=== PATIENT | female | born 1980 | race Caucasian/White ===

== ENCOUNTER 2017-05-01 12:52 | Emergency (ER) | payer BC ==
[2017-05-01] MEDS ORDERED: Sodium Chloride 0.9% 1,000 ML IV ONE (13:35)
[2017-05-01] MEDS ORDERED: Sodium Chloride 0.9% 50 ML SDV FLUSH SCH (13:45)
[2017-05-01] MEDS ORDERED: Iopamidol 755 Mg/ML 100 ML Bottle IV PRN (13:45)
[2017-05-01 13:55] VITALS: BP 121/84
[2017-05-01] MEDS ORDERED: NS + KCl 20mEq/L 1,000 ML ONE (14:40)
[2017-05-01] MEDS ORDERED: cefTRIAXone 1 GM in Sodium Chloride 0.9% 50 ML IV ONE (15:24)
[2017-05-01] MEDS ORDERED: cefTRIAXone 1 GM Vial ONE (15:29)
--- NOTE | 2017-05-01 18:53 | CT ---
DATE OF SERVICE: 05/01/2017 CLINICAL DATA: SOB after surgery. ENHANCED CHEST CT: Multislice acquisition through the chest with IV contrast was performed. No priors. Motion artifact significantly degrades image quality. I do not see any definite PE. No pneumothorax. There are small bilateral pleural effusions, right greater than left. No aortic aneurysm or dissection. There are atelectatic changes in the dependent portion of both lungs. There are small areas of consolidation in both costophrenic angles. Pneumonia should be considered. The heart size is normal. No pericardial effusion. No hilar or mediastinal adenopathy. There is a small hiatal hernia. No other significant findings. IMPRESSION: No evidence of PE. Small bilateral pleural effusions, right greater than left. Areas of consolidation in both costophrenic angles. Pneumonia should be considered. [id number] MTDD
--- NOTE | 2017-05-01 21:57 | ER ---
HISTORY OF PRESENT ILLNESS: A 37-year-old lady who comes in with complaints of shortness of breath and lightheadedness since this morning. She states that she had surgery on Tuesday for right hip. 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 She has been weak and a little bit lightheaded since surgery, but today things got worse. She denies any falls or new injuries. She does not think she has been running a fever. The patient does have history of lupus. She denies any significant cough, just tells me that there is mild shortness of breath. OBJECTIVE: GENERAL APPEARANCE: The patient is awake and alert. She is pale. VITAL SIGNS: Reviewed. Blood pressure 121/84. She is afebrile. Pulse is 75, O2 sats are 100% on room air. HEENT: Eyes, pupils equal, round, and reactive to light. EOMs are intact. Ears, TMs are dull. Oral mucous membranes are moist. Posterior pharynx shows no obvious inflammation. NECK: Supple. LUNGS: Clear to auscultation. CARDIAC: Heart sounds distinct. S1, S2 present. Regular rate. No murmurs. SKIN: Warm and dry. I evaluated the dressing over the incision on the right hip and the area around the border of the dressing reveals skin is intact without any redness. There is mild swelling of the entire right thigh. There is no tenderness with palpation of the thigh or of the lower leg. LAB AND X-RAYS: CBC shows a normal white count. Neutrophils are slightly elevated at 74.8. D-dimer is elevated at 985. Comprehensive metabolic panel shows a potassium level of 3.0. Kidney function is good. A chest CT was then done with contrast, the CT report is negative for PE, is questioning either atelectasis or pneumonia in the lower lobes. At this point, I consulted the ED Glenn BAUMANN who is Dr. Medina who reviewed the CT. The patient will be ambulated on crutches and if her O2 sats remained stable, was instructed that she would be a candidate that could go home with some antibiotics and a close followup in the clinic within the next day or two. The patient was given 1 L normal saline with 20 mEq of K-Dur. We also give her Rocephin 1 g IV. We did have the patient ambulate in the emergency room. Her oxygen saturation drops to 96% at the lowest on room air. DIAGNOSES: 1. Questionable pneumonia versus atelectasis postop. 2. Hypokalemia. TREATMENT PLAN: The patient is instructed that she can go home with a followup in the clinic over the next day or two, no later than Tuesday. Follow up sooner if her symptoms should get worse. CRS/MODL /[id number]
== END 2017-05-01 16:40 | disposition home or self-care (01) ==
LOC: LB.ED 12:52
DX: E87.6 Hypokalemia (principal)
CPT/HCPCS: 36415; 71260; 80053; 85025; 85379; 87804; 93005; 96361; 96365; 99285-25; J0696; J3480; J7030; J7050; Q9967

== ENCOUNTER 2017-10-04 20:06 | Emergency (ER) | payer BC ==
[2017-10-04 21:18] VITALS: BP 135/91
--- NOTE | 2017-10-04 21:54 | EDM.PDOC ---
ED HPI GENERAL MEDICAL PROBLEM - General Chief Complaint: General Stated Complaint: ABDOMINAL DISTENTION Time Seen by Provider: 10/04/17 20:40 Source of Information: Reports: Patient, RN History Limitations: Reports: No Limitations - History of Present Illness INITIAL COMMENTS - FREE TEXT/NARRATIVE: 37 yr female presents with lower abdominal pain. States no BM for a couple days and some nausea. States she try to take a couple stool suppositories and did try some MOM. States she is so uncomfortable. States she just wants to know if something is wrong inside. States hx of diverticular disease with her dad. Abdomen Pain Score (Numeric/FACES): 5 - Related Data Allergies Allergy/AdvReac Type Severity Reaction Status Date / Time No Known Allergies Allergy Verified 10/04/17 22:35 Home Meds: Home Meds Albuterol [Proair HFA] 1 puff INH ASDIRECTED PRN 03/23/14 [History] Levothyroxine Sodium [Levoxyl] 75 mcg PO QPM 11/22/14 [History] Cholecalciferol (Vitamin D3) [Vitamin D3] 2,000 unit PO QPM 05/01/17 [History] Cyclobenzaprine HCl 5 mg PO QPM PRN 05/01/17 [History] atorvaSTATin [Lipitor] 20 mg PO BEDTIME 05/01/17 [History] Past Medical History - Past Health History Medical/Surgical History: Denies Medical/Surgical History Respiratory History: Reports: Asthma, Other (See Below) Other Respiratory History: childhood Croup and pneumonia Gastrointestinal History: Reports: Chronic Constipation Other Gastrointestinal History: abdominal pain throughout abdomen, nausea, orange stool with blood Genitourinary History: Reports: None 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: possible early menopause, history of Musculoskeletal History: Reports: Other (See Below) Other Musculoskeletal History: osteonectrosis Endocrine/Metabolic History: Reports: Hypothyroidism Immunologic History: Reports: Other (See Below) Other Immunologic History: Lupus - Infectious Disease History Infectious Disease History: Reports: Influenza - Past Surgical History GI Surgical History: Reports: None Female Surgical History: Reports: Section Musculoskeletal Surgical History: Reports: Arthroscopic Procedure, Other (See Below) Other Musculoskeletal Surgeries/Procedures:: bilateral core decompression with stem cell replacement Social & Family History - Tobacco Use Smoking Status *Q: Current Some Day Smoker Years of Tobacco use: 0 Packs/Tins Daily: 0 - Caffeine Use Caffeine Use: Reports: Coffee - Recreational Drug Use Recreational Drug Use: No ED ROS GENERAL - Review of Systems Review Of Systems: See Below Constitutional: Reports: Decreased Appetite. Denies: Fever, Chills HEENT: Reports: No Symptoms Respiratory: Reports: No Symptoms Cardiovascular: Reports: No Symptoms GI/Abdominal: Reports: Abdominal Pain, Constipation, Decreased Appetite, Distension, Nausea. Denies: Vomiting Musculoskeletal: Reports: No Symptoms Skin: Reports: No Symptoms Neurological: Reports: No Symptoms Psychiatric: Reports: No Symptoms ED EXAM, GENERAL - Physical Exam Exam: See Below Exam Limited By: No Limitations General Appearance: Alert, Mild Distress Ears: Hearing Grossly Normal Nose: Normal Inspection, Normal Mucosa Throat/Mouth: Normal Inspection, Normal Voice, No Airway Compromise Head: Atraumatic, Normocephalic Neck: Normal Inspection, Supple, Non-Tender Respiratory/Chest: No Respiratory Distress, Lungs Clear, Normal Breath Sounds Cardiovascular: Normal Peripheral Pulses, Regular Rate, Rhythm, No Edema GI/Abdominal: Soft, Guarding, Tender, Other (some bowel sounds auscultated). No : Rigid Neurological: Alert, Oriented, Normal Cognition Psychiatric: Normal Affect, Normal Mood Skin Exam: Warm, Dry, Intact, Normal Color Lymphatic: No Adenopathy Course - Vital Signs Last Recorded V/S: Last Vital Signs Temp 98.8 F 10/04/17 21:18 Pulse 72 10/04/17 21:18 Resp 18 10/04/17 21:18 BP 135/91 H 10/04/17 21:18 Pulse Ox 100 10/04/17 21:18 - Orders/Labs/Meds Orders: Active Orders 24 hr Category Date Time Status Abdomen Pelvis wo Cont [CT] Stat Exams 10/04/17 20:39 Taken Labs: Laboratory Tests 10/04/17 10/04/17 Range/Units 21:00 21:00 WBC 6.4 D (4.0-11.0) K/uL RBC 3.92 (3.80-5.80) M/uL Hgb 12.3 (11.5-16.5) g/dL Hct 35.8 L (37.0-47.0) % MCV 91 (76-96) fL MCH 31.4 (27.0-32.0) pg MCHC 34.4 (31.0-35.0) g/dL RDW 12.1 (11.0-16.0) % Plt Count 242 (150-500) K/uL MPV 9.7 (6.0-10.0) fL Neut % (Auto) 61.4 (45.0-70.0) % Lymph % (Auto) 29.8 (20.0-40.0) % Greene % (Auto) 7.2 (3.0-10.0) % Eos % (Auto) 1.4 (1.0-5.0) % Baso % (Auto) 0.2 (0.0-0.5) % Neut # (Auto) 3.94 (2.00-7.50) K/uL Lymph # (Auto) 1.91 (1.50-4.00) K/uL Greene # (Auto) 0.46 (0.20-0.80) K/uL Eos # (Auto) 0.09 (0.04-0.40) K/uL Baso # (Auto) 0.01 L (0.02-0.10) K/uL Sodium 142 (136-145) mmol/L Potassium 3.3 L (3.5-5.1) mmol/L Chloride 104 (98-107) mmol/L Carbon Dioxide 29.4 (21.0-32.0) mmol/L Anion Gap 11.9 (5.0-15.0) mmol/L BUN 9 D (8-26) mg/dL Creatinine 0.87 (0.55-1.02) mg/dL Est Cr Clr Drug Dosing 71.38 mL/min Estimated GFR (MDRD) > 60 (>60) MLS/MIN BUN/Creatinine Ratio 10.3 (6-25) Glucose 92 D (74-100) mg/dL Calcium 8.3 L (8.5-10.1) mg/dL Total Bilirubin 0.6 (0.0-1.0) mg/dL AST 13 L (15-37) U/L ALT 19 (12-78) U/L Alkaline Phosphatase 84 (46-116) U/L Total Protein 7.1 (6.4-8.2) g/dL Albumin 3.9 (3.4-5.0) g/dL Globulin 3.2 (2.2-4.2) g/dL Albumin/Globulin Ratio 1.2 (0.8-2.0) Meds: Medications Discontinued Medications Generic Name Dose Route Start Last Admin Trade Name Irvin PRN Reason Stop Dose Admin Sodium Chloride 1,000 mls @ 999 mls/hr 10/04/17 21:57 10/04/17 22:00 Normal Saline IV 10/04/17 22:57 999 mls/hr .BOLUS ONE Administration Ondansetron HCl 4 mg 10/04/17 22:35 10/04/17 22:37 Zofran IVPUSH 10/04/17 22:36 4 mg ONETIME ONE Administration - Re-Assessments/Exams Free Text/Narrative Re-Assessment/Exam: 10/04/17 21:58 CT of abdomen and pelvis completed and reviewed results with patient. No signs of bowel obstruction and no diverticular disease. Will give liter of Nacl as pt has had little intake today. Recommend NPO for 8-12 hour and if pain is improved, may increase to liquid diet. Zofran 4 mg IV given to assist with abdominal tenderness. 10/05/17 23:08 Discharge to self care. Recommend NPO and increase to liquid diet as pain resolves. Departure - Departure Time of Disposition: 23:08 Disposition: Home, Self-Care 01 Condition: Good Clinical Impression: Abdominal tenderness - Discharge Information Instructions: Clear Liquid Diet, Adult, [id number] Referrals: PCP,None [Primary Care Provider] - Forms: ED Department Discharge Additional Instructions: It is recommended that you stay NPO for 8-12 hours and if pain is improved advance to liquid diet. If pain and symptoms persist return to ER. If you have any questions or concerns please call us at [phone]. - My Orders Last 24 Hours: My Active Orders 10/04/17 20:39 Abdomen Pelvis wo Cont [CT] Stat - Assessment/Plan Last 24 Hours: My Active Orders 10/04/17 20:39 Abdomen Pelvis wo Cont [CT] Stat
[2017-10-04] MEDS ORDERED: Sodium Chloride 0.9% 1,000 ML IV ONE (21:57)
[2017-10-04] MEDS ORDERED: Ondansetron 4 MG/2 ML SDV IVPUSH ONE (22:35)
--- NOTE | 2017-10-05 10:48 | CT ---
DATE OF SERVICE: 10/04/17 CLINICAL DATA: Abdominal pain UNENHANCED ABDOMEN AND PELVIC CT: Multislice acquisition through the abdomen and pelvis without IV or oral contrast was performed. No priors. The lung bases are clear. The unenhanced liver appears normal. The gallbladder appears normal. The spleen appears normal. 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 The pancreas appears normal. The right and left adrenals appear normal. The right and left kidneys appear normal. No nephrocalcinosis or nephrolithiasis. No hydronephrosis or hydroureter. The bladder is partially fluid-filled and appears normal. The uterus is mildly enlarged and has heterogeneous attenuation suggesting the possibility of a leiomyomatous uterus. There are low density lesions in both ovaries consistent with ovarian cysts. The appendix is not dilated. No evidence of appendicitis. No free air. No free fluid. No dilated loops of bowel. No adenopathy. No aortic aneurysm. There is a small umbilical hernia containing fat. [id number] [facility]
== END 2017-10-04 23:08 | disposition home or self-care (01) ==
LOC: LB.ED 20:06
DX: R10.819 Abdominal tenderness, unspecified site (principal); F17.210 Nicotine dependence, cigarettes, uncomplicated
CPT/HCPCS: 36415; 74176; 80053; 85025; 96361; 96374; 99284-25; J2405; J7030

== ENCOUNTER 2021-02-11 17:34 | Emergency (ER) | payer BC ==
[2021-02-11 17:51] VITALS: BP 121/88; PULSE 96
[2021-02-11] MEDS: Ketorolac 60 MG/2 ML SDV IM ONE (17:59)
--- NOTE | 2021-02-11 18:30 | EDM.PDOC ---
ED HPI GENERAL MEDICAL PROBLEM - General Chief Complaint: Lower Extremity Injury/Pain Stated Complaint: hip pain Time Seen by Provider: 02/11/21 17:45 Source of Information: Reports: Patient, RN Notes Reviewed History Limitations: Reports: No Limitations - History of Present Illness INITIAL COMMENTS - FREE TEXT/NARRATIVE: This patient presents to the emergency department for evaluation of right hip pain. She states she has a history of lupus which was diagnosed several years ago and had some arthritis in that hip related to her lupus at that time. She has not been on her medications for the past year and has noticed some unusual changes again including increased hip pain, fatigue, and hand swelling. She does have an appointment with her primary care provider next week to establish care and to identify a child care development specialist. She denies fever, cough, sore throat, chest pain, nausea, vomiting, other symptoms or concerns. Right Upper Hip Pain Score (Numeric/FACES): 7 - Related Data Allergies Allergy/AdvReac Type Severity Reaction Status Date / Time No Known Allergies Allergy Verified 02/11/21 17:41 Home Meds: Home Meds Albuterol [Proair HFA] 1 puff INH ASDIRECTED PRN 03/23/14 [History] Levothyroxine Sodium [Levoxyl] 75 mcg PO DAILY 11/22/14 [History] Cyclobenzaprine HCl 10 mg PO QPM PRN 05/01/17 [History] atorvaSTATin [Lipitor] 20 mg PO BEDTIME 05/01/17 [History] Sertraline [Zoloft] 100 mg PO DAILY 11/26/20 [History] Past Medical History - Past Health History Medical/Surgical History: Denies Medical/Surgical History HEENT History: Reports: Impaired Vision Respiratory History: Reports: Asthma, Other (See Below) Other Respiratory History: childhood Croup and pneumonia Gastrointestinal History: Reports: Chronic Constipation Other Gastrointestinal History: abdominal pain throughout abdomen, nausea, orange stool with blood Genitourinary History: Reports: None 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: history of Musculoskeletal History: Reports: Other (See Below) Other Musculoskeletal History: osteonectrosis Psychiatric History: Reports: Depression Endocrine/Metabolic History: Reports: Hypothyroidism Immunologic History: Reports: Other (See Below) Other Immunologic History: Lupus - Infectious Disease History Infectious Disease History: Reports: Influenza - Past Surgical History GI Surgical History: Reports: None Female Surgical History: Reports: Section Musculoskeletal Surgical History: Reports: Arthroscopic Procedure, Other (See Below) Other Musculoskeletal Surgeries/Procedures:: bilateral core decompression with stem cell replacement Social & Family History - Caffeine Use Caffeine Use: Reports: Coffee, Soda Review of Systems - Review of Systems Review Of Systems: Comprehensive ROS is negative, except as noted in HPI. ED EXAM, GENERAL - Physical Exam Exam: See Below Exam Limited By: No Limitations General Appearance: Alert, No Apparent Distress Eye Exam: Bilateral Eye: PERRL Ears: Normal External Exam Nose: Normal Inspection Head: Atraumatic, Normocephalic Neck: Normal Inspection, Full Range of Motion Respiratory/Chest: No Respiratory Distress, No Accessory Muscle Use (DuoNeb) Extremities: Other (Right hip tenderness with palpation. No discoloration or deformity noted. Distal CMS intact. Patient ambulating with a limp.) Neurological: Alert, Oriented (Because of his fall we have this problem) Skin Exam: Warm, Dry, Intact, Normal Color Course - Vital Signs Last Recorded V/S: Last Vital Signs Temp 37.4 C 02/11/21 17:42 Pulse 96 02/11/21 17:42 Resp 16 02/11/21 17:42 BP 121/88 02/11/21 17:42 Pulse Ox 97 02/11/21 17:42 - Orders/Labs/Meds Orders: Active Orders 24 hr Category Date Time Status Pelvis wo Cont [CT] Stat Exams 02/11/21 17:55 Taken Meds: Medications Discontinued Medications Generic Name Dose Route Start Last Admin Trade Name Freq PRN Reason Stop Dose Admin Ketorolac Tromethamine 60 mg 02/11/21 17:55 02/11/21 17:59 Ketorolac 60 Mg/2 Ml Sdv IM 02/11/21 17:56 60 mg ONETIME ONE Administration - Re-Assessments/Exams Free Text/Narrative Re-Assessment/Exam: This patient presents to the emergency department for evaluation of right hip pain. History and clinical findings are most consistent with an arthritis. 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 This certainly could be the source of her pain as well. She was given IM Toradol in the emergency department and did very well with that. A prescription for this was sent to the pharmacy for her to use as needed until she can be seen by her primary care provider next week. Questions were answered, supportive care discussed, the patient was stable at the time of discharge. 02/11/21 20:41 Departure - Departure Time of Disposition: 18:30 Disposition: Home, Self-Care 01 Condition: Good Clinical Impression: Hip pain, right - Discharge Information *PRESCRIPTION DRUG MONITORING PROGRAM REVIEWED*: Not Applicable *COPY OF PRESCRIPTION DRUG MONITORING REPORT IN PATIENT MARYBETH: Not Applicable Instructions: Joint Pain Referrals: PCP,None [Primary Care Provider] - Forms: ED Department Discharge Sepsis Event Note (ED) - Evaluation Sepsis Screening Result: No Definite Risk - Focused Exam Vital Signs: Vital Signs Temp Pulse Resp BP Pulse Ox 02/11/21 17:42 37.4 C 96 16 121/88 97 - My Orders Last 24 Hours: My Active Orders 02/11/21 17:55 Pelvis wo Cont [CT] Stat - Assessment/Plan Last 24 Hours: My Active Orders 02/11/21 17:55 Pelvis wo Cont [CT] Stat
--- NOTE | 2021-02-13 11:25 | CT ---
DATE OF SERVICE: 02/11/2021 CLINICAL DATA: Hip pain; hx lupus arthritis. PELVIS AND HIP CT: There are linear lucencies that extend from the greater trochanter to the head of the femurs bilaterally consistent with prior internal fixation. There are mild osteoarthritic changes of both hip joints. No acute fracture or dislocation. No lytic or blastic bone lesions. The soft tissues are unremarkable. [id number] MTDD
== END 2021-02-11 18:34 | disposition home or self-care (01) ==
LOC: LB.ED 17:34
DX: M25.551 Pain in right hip (principal)
CPT/HCPCS: 72192; 96372; 99283-25; J1885

== ENCOUNTER 2021-05-24 10:43 | Emergency (ER) | payer BC ==
[2021-05-24] MEDS ORDERED: Albuterol/Ipratropium 3.0-0.5 MG/3 ML Neb Soln NEB ONE (11:01)
[2021-05-24] MEDS ORDERED: Budesonide 0.5 MG/2 ML Neb Susp NEB ONE (11:02)
[2021-05-24] MEDS ORDERED: Ondansetron 4 MG Tab.DIS PO ONE (11:02)
[2021-05-24] MEDS ORDERED: Dexamethasone 4 MG/ML 5 ML MDV IVPUSH ONE (11:02)
[2021-05-24] MEDS ORDERED: Sodium Chloride 0.9% 1,000 ML IV ONE (11:08)
[2021-05-24] MEDS ORDERED: Ondansetron 4 MG Tab.DIS ONE (12:00)
[2021-05-24] MEDS ORDERED: guaiFENesin/Dextromethorphan 100-10 MG/5 ML Soln 10 ML Cup ONE (12:17)
[2021-05-24] MEDS ORDERED: Budesonide 0.5 MG/2 ML Neb Susp ONE ×2 (12:19)
== END 2021-05-24 12:22 | disposition home or self-care (01) ==
LOC: LB.ED 10:43
DX: J45.41 Moderate persistent asthma with (acute) exacerbation (principal); Z79.899 Other long term (current) drug therapy
CPT/HCPCS: 36415; 71046; 80053; 83605; 85025; 85379; 99285-25; J7620-GY; Q0162

== ENCOUNTER 2022-05-10 09:38 | Day surgery (SDC) | payer BC ==
[~2022-05-10 09:38] MED LIST: Acetaminophen/HYDROcodone 325-5 MG Tab PO PRN; Lactated Ringers 1,000 ML IV SCH; ceFAZolin 1 GM in Premix Bag 1 BAG IV ONE
[2022-05-10] MEDS ORDERED: ceFAZolin 1 GM in Sodium Chloride 0.9% 100 ML IV ONE (09:45)
[2022-05-10] MEDS ORDERED: fentaNYL 100 MCG/2 ML SDV ONE (11:30)
[2022-05-10] MEDS ORDERED: Propofol 200 MG/20 ML SDV ONE (11:30)
[2022-05-10 12:10] VITALS: BP 130/94; PULSE 87
== END 2022-05-10 12:55 | disposition home or self-care (01) ==
LOC: LB.SDS 09:38
PROVIDERS: ATTEND Orthopaedic Surgery
DX: G56.03 Carpal tunnel syndrome, bilateral upper limbs (principal); M79.641 Pain in right hand; M79.642 Pain in left hand; F17.200 Nicotine dependence, unspecified, uncomplicated
CPT/HCPCS: 64721; A9270; J0690; J2704; J3010; J7120

== ENCOUNTER 2023-12-09 15:11 | Emergency (ER) | payer BC ==
[2023-12-09] MEDS ORDERED: Sodium Chloride 0.9% 10 ML Syringe FLUSH PRN (15:29)
[2023-12-09] MEDS: Sodium Chloride 0.9% 1,000 ML IV SCH (15:37)
[2023-12-09] MEDS: Orphenadrine 60 MG/2 ML Inj IV ONE (15:40)
[2023-12-09 15:44] LABS: HEMOGLOBIN 12.6 g/dL (11.5-16.5); MEAN CORPUSCULAR HEMOGLOBIN 31.6 pg (27.0-32.0); MEAN CORPUSCULAR HGB CONC 34.1 g/dL (31.0-35.0); MEAN PLATELET VOLUME 9.3 fL (6.0-10.0); RED BLOOD CELL COUNT 3.99 M/uL (3.80-5.80); RED CELL DISTRIBUTION WIDTH 12.6 % (11.0-16.0); WHITE BLOOD CELL COUNT,WBC 12.1 K/uL (4.0-11.0)
[2023-12-09] MEDS: diazePAM 5 MG/ML MDV IV ONE (15:44)
[2023-12-09 16:00] VITALS: BP 147/93; PULSE 105
[2023-12-09 16:00] LABS: BLOOD UREA NITROGEN,BUN 20 mg/dL (8-26); BUN/CREATININE RATIO 21.5 (6-25); CALCIUM 8.4 mg/dL (8.5-10.1); CHLORIDE,CL 102 mmol/L (98-107); CREATININE 0.93 mg/dL (0.55-1.02); ESTIMATED GFR 79 mL/min (>60); GLUCOSE RANDOM 151 mg/dL (74-100); SODIUM,NA 138 mmol/L (136-145)
[2023-12-09] MEDS: Orphenadrine 60 MG/2 ML Inj ONE (16:01)
[2023-12-09] MEDS: diazePAM 5 MG/ML MDV ONE (16:02)
[2023-12-09 16:09] LABS: C-REACTIVE PROTEIN < 5.0 mg/L (<5.0)
[2023-12-09] MEDS: SUMAtriptan 6 MG/0.5 ML SDV SUBCUT ONE ×2 (16:33→23:34)
[2023-12-09] MEDS: SUMAtriptan 6 MG/0.5 ML SDV ONE (17:13)
[2023-12-09] MEDS: Ketorolac 30 MG/ML SDV IVPUSH ONE (17:35)
[2023-12-09] MEDS: Ketorolac 30 MG/ML SDV ONE (17:38)
== END 2023-12-09 20:10 | disposition home or self-care (01) ==
LOC: LB.ED 15:11
DX: G43.909 Migraine, unspecified, not intractable, without status migrainosus (principal); E78.00 Pure hypercholesterolemia, unspecified; E03.9 Hypothyroidism, unspecified; Z79.899 Other long term (current) drug therapy
CPT/HCPCS: 36415; 80048; 83735; 85027; 86140; 96365; 96372; 96375; 99283-25; 99284; J1885; J2360; J3030; J3360; J3475; J7030